=== PATIENT | female | born 1965 | race African-American/Black ===

== ENCOUNTER 2018-04-29 20:47 | Emergency (ER) | payer BC ==
[~2018-04-29] VITALS: Ht 175.3 cm; Wt 78.0 kg
[2018-04-29 22:54] LABS: BASOPHILS % 0.3 % (0.0-2.0); EOSINOPHILS % 0.1 % (0.0-5.0); HEMATOCRIT. 31.7 % (36.0-48.0); HEMOGLOBIN. 10.7 g/dL (12.0-16.0); LYMPHOCYTES % 16.5 % (20.0-50.0); MEAN CORPUSCULAR HEMOGLOBIN 30.3 pg (28.0-32.0); MEAN CORPUSCULAR VOLUME 89.5 fL (81.0-99.0); MEAN PLATELET VOLUME 9.6 fl (7.4-10.4); MONOCYTES % 5.9 % (2.0-8.0); NEUTROPHILS % 77.2 % (40.0-76.0); PLATELET 204 x1000/uL (130-400); RED BLOOD CELL COUNT 3.54 mill/uL (4.2-5.4); RED CELL DISTRIBUTION WIDTH 13.5 % (11.6-14.6)
[2018-04-29 22:55] LABS: CLARITY URINE CLEAR (CLEAR); COLOR URINE YELLOW (YELLOW); KETONES URINE 1+ (NEGATIVE); LEUKOCYTE ESTERASE URINE 2+ (NEGATIVE); NITRITE URINE POSITIVE (NEGATIVE); OCCULT BLOOD URINE 2+ (NEGATIVE); PROTEIN URINE 3+ (NEGATIVE); SPECIFIC GRAVITY URINE 1.022 (1.005-1.030)
[2018-04-29 22:55] LABS: CHLORIDE 103 mEq/L (98-107)
[2018-04-29 22:58] LABS: PROTHROMBIN TIME 10.2 sec (9.1-11.1)
[2018-04-29] MEDS ORDERED: POTASSIUM CHLORIDE 20MEQ/PACKET PO ONE (23:30)
[2018-04-30 00:04] VITALS: BP 122/67
== END 2018-04-30 00:06 | disposition home or self-care (01) ==
LOC: ER 20:47
DX: N39.0 Urinary tract infection, site not specified (principal); I10 Essential (primary) hypertension; Z98.51 Tubal ligation status
CPT/HCPCS: 36415; 80053; 81003; 85025; 85610; 87077; 87086; 87186; 99284

== ENCOUNTER → 2019-12-27 | Day surgery (SDC) | payer BC ==
[~2019-12-27] MED LIST: AMLO5TAB88 PO; ATOR10TA69 PO; DEXAMETHASONE 4MG/ML 1ML VIAL ONE; FENTANYL CITRATE/PF 50MCG/ML 2ML VIAL ONE; LIDOCAINE HCL 1% 20ML VIAL (Pyxis) INJ ONE; LOSA1TAB34 PO; MIDAZOLAM HCL 2 MG/2 ML VIAL ONE; ONDANSETRON HCL 4MG/2ML INJ ONE; PROPOFOL 200MG/20ML VIAL IV ONE; SODIUM BICARBONATE 4% (2.4MEQ) 5ML VIAL IV ONE
== END | disposition home or self-care (01) ==
LOC: RAD 06:52
PROVIDERS: ATTEND Surgery
DX: N63.20 Unspecified lump in the left breast, unspecified quadrant (principal); I10 Essential (primary) hypertension; Z79.899 Other long term (current) drug therapy; Z98.890 Other specified postprocedural states; Z72.89 Other problems related to lifestyle
CPT/HCPCS: 19281; J3490; 19285

== ENCOUNTER → 2019-12-29 | Day surgery (SDC) | payer BC ==
[~2019-12-29] VITALS: Ht 175.3 cm; Wt 81.6 kg
[~2019-12-29] MED LIST changes: +BUPIVACAINE HCL/PF 0.5% (5MG/ML) 10ML ONE; -DEXAMETHASONE 4MG/ML 1ML VIAL ONE; -FENTANYL CITRATE/PF 50MCG/ML 2ML VIAL ONE; +HYDROMORPHONE HCL/PF 2MG/ML CPJ IV PRN; +LABETALOL 5MG/ML SYR 20 MG/4 ML SYRINGE IV PRN; +LACTATED RINGERS 1,000 ML IV SCH; -LIDOCAINE HCL 1% 20ML VIAL (Pyxis) INJ ONE; +MEPERIDINE HCL/PF 25MG/ML CPJ IV PRN; +METHYLENE BLUE 50 MG/10 ML AMP IV ONE; -MIDAZOLAM HCL 2 MG/2 ML VIAL ONE; +ONDANSETRON HCL 4MG/2ML INJ IV PRN; -ONDANSETRON HCL 4MG/2ML INJ ONE; -PROPOFOL 200MG/20ML VIAL IV ONE; +SKIN ADHESIVE 0.7 GM EA TOP ONE; -SODIUM BICARBONATE 4% (2.4MEQ) 5ML VIAL IV ONE; +SODIUM CHLORIDE 0.9% 10ML VIAL ONE; +TRAMADOL 50MG TABLET PO PRN
[2019-12-29 06:49] LABS: CLARITY URINE CLEAR (CLEAR); COLOR URINE YELLOW (YELLOW); KETONES URINE NEGATIVE (NEGATIVE); LEUKOCYTE ESTERASE URINE NEGATIVE (NEGATIVE); NITRITE URINE NEGATIVE (NEGATIVE); OCCULT BLOOD URINE TRACE (NEGATIVE); PH URINE 6.5 (4.5-8.0); PROTEIN URINE NEGATIVE (NEGATIVE); SPECIFIC GRAVITY URINE 1.021 (1.005-1.030)
== END | disposition home or self-care (01) ==
LOC: OR 06:05
PROVIDERS: ATTEND Surgery
DX: N63.20 Unspecified lump in the left breast, unspecified quadrant (principal); I10 Essential (primary) hypertension; E78.00 Pure hypercholesterolemia, unspecified; Z79.899 Other long term (current) drug therapy; Z72.89 Other problems related to lifestyle
CPT/HCPCS: 19120; 81003; 88307; J1100; J2250; J2405; J2704; J3010; J3490; Q9968

== ENCOUNTER 2022-03-25 20:34 | Emergency (ER) | payer BC ==
[~2022-03-25] VITALS: Ht 175.3 cm; Wt 87.0 kg
[~2022-03-25 20:34] MED LIST changes: -BUPIVACAINE HCL/PF 0.5% (5MG/ML) 10ML ONE; -HYDROMORPHONE HCL/PF 2MG/ML CPJ IV PRN; -LABETALOL 5MG/ML SYR 20 MG/4 ML SYRINGE IV PRN; -LACTATED RINGERS 1,000 ML IV SCH; -MEPERIDINE HCL/PF 25MG/ML CPJ IV PRN; -METHYLENE BLUE 50 MG/10 ML AMP IV ONE; -ONDANSETRON HCL 4MG/2ML INJ IV PRN; -SKIN ADHESIVE 0.7 GM EA TOP ONE; -SODIUM CHLORIDE 0.9% 10ML VIAL ONE; -TRAMADOL 50MG TABLET PO PRN
[2022-03-25 20:47] VITALS: BP 155/111
== END 2022-03-26 08:08 | disposition left against medical advice (07) ==
LOC: ER 20:34
DX: Z53.21 Procedure and treatment not carried out due to patient leaving prior to being seen by health care provider (principal)